=== PATIENT | female | born 1980 | race Caucasian/White ===

== ENCOUNTER 2019-01-24 21:59 | Emergency (ER) | payer SELFPAY ==
[~2019-01-24] VITALS: Ht 167.6 cm; Wt 82.6 kg
[~2019-01-24 21:59] MED LIST: [UNRECOGNIZED DRUG - CODE] PO
[2019-01-24 22:13] VITALS: BP 144/99
--- NOTE | 2019-01-24 22:40 | NUR ---
38 YO BIB SELF AND FAMILY PRESENTS TO ED C/O 06/03 SEVERE LOWER BACK PAIN SINCE 0800 THIS MORNING. PT REPORTS HX OF LOWER BACK SURGERY FOR HERNIATED DISC 10 YEARS AGO. PT STATES THE PAIN IS BEHIND THE INCISION SCAR AND IS CRAMP-LIKE. PT IS UNABLE TO SIT DOWN. -- PT IS TEARFUL, PACING ROOM. COOPERATIVE. ANSWERING QUESTIONS APPROPRIATELY. -- SKIN PINK, DRY, WARM. BREATHING EVEN, UNLABORED. PMH-- BACK SURGERY, ANKLE SURGERY, 2013 RX-- TYLENOL AT 1400, SOULEYMANE'S AT 1900
--- NOTE | 2019-01-24 23:12 | NUR ---
Dr. Cruz evaluating patient at bedside.
[2019-01-24] MEDS ORDERED: DIAZEPAM 5 MG TAB PO ONE (23:25)
[2019-01-24] MEDS ORDERED: KETOROLAC 30 MG/ML VIAL IM ONE (23:25)
--- NOTE | 2019-01-25 | NUR ---
PT RECEIVED 30 MG IM TORADOL AND 5 MG PO VALIUM FOR 06/03 BACK PAIN. PT REPORTS 06/03 PAIN. MEDICATIONS INEFFECTIVE. Addendum: 01/25/19 at [address] [facility] [address] CARDOZA NOTIFIED. NEW ORDERS RECEIVED.
[2019-01-25] MEDS ORDERED: MORPHINE SULFATE 4 MG/ML SYR IM ONE (00:10)
--- NOTE | 2019-01-25 01:00 | NUR ---
PT RECEIVED 4 MG IM MORPHINE AT 0030. PT REPORTS 04/[address] CARDOZA NOTIFIED. AWAITING NEW ORDERS.
[2019-01-25] MEDS ORDERED: fentaNYL 0.05 MG/ML VIAL NS ONE (01:15)
--- NOTE | 2019-01-25 02:00 | NUR ---
PT RECIEVED 1 MG INTRANASAL FENTANYL. WILL CONTINUE TO MONITOR FOR EFFECTIVENESS.
--- NOTE | 2019-01-25 02:25 | NUR ---
PT REPORTS 6/10 BACK PAIN. FENTANYL EFFECTIVE. DR. CARDOZA WILL SEND HOME WITH RX FOR PAIN MEDICATION.
[2019-01-25 02:30] VITALS: BP 132/68
--- NOTE | 2019-01-25 02:30 | NUR ---
Patient discharged with v/s stable. Written and verbal after care instructions given and explained. Patient alert, oriented and verbalized understanding of instructions. Ambulatory with steady gait. All questions addressed prior to discharge. ID band removed. Patient advised to follow up with PMD. Rx of Wilder, Lidoderm, and Naprosyn given. Patient educated on indication of medication including possible reaction and side effects. Opportunity to ask questions provided and answered.
== END 2019-01-25 02:30 | disposition home or self-care (01) ==
LOC: MED 21:59
DX: M54.5 Low back pain (principal); Z98.890 Other specified postprocedural states; Z79.1 Long term (current) use of non-steroidal anti-inflammatories (NSAID)
CPT/HCPCS: 81002; 81025; 96372; 99283; J1885; J2270; J3010

== ENCOUNTER 2019-01-31 09:42 | Emergency (ER) | payer SELFPAY ==
[~2019-01-31] VITALS: Ht 167.6 cm; Wt 87.7 kg
[2019-01-31 09:45] VITALS: BP 133/61
--- NOTE | 2019-01-31 09:50 | NUR ---
BIB DAUGHTER. AAO X4 C/O LOWER BACK PAIN RADIATING TO LT LEG X8 DAYS. PT WAS SEEN IN ER 1 WEEK, WAS GIVEN VALIUM, NORCO, AND NAPROSYN. PT DENIES TRAUMA. CONSTANT SHARP PAIN THAT RADIATES FROM SACRUM DOWN LT LEG AT 10/10. PER PT, SHE HAD PRIOR SURGERY FOR HERNIA DISC 2008. PT STATES SHE WENT TO [facility] ON FRIDAY WITH NO RELIEF. PT HAS STEADY GAIT. ER TO EVALUATE PT.
--- NOTE | 2019-01-31 09:58 | NUR ---
DR AMADOR AT BEDSIDE FOR PT EVAL
--- NOTE | 2019-01-31 09:58 | NUR ---
[facility] in [facility] - 01/31/19 at [address] CRUZ AT [facility] FOR PT EVAL
[2019-01-31] MEDS ORDERED: MORPHINE SULFATE 4 MG/ML SYR IVP ONE (10:00)
[2019-01-31] MEDS ORDERED: NACL 0.9% 1,000 ML IV ONE (10:00)
[2019-01-31] MEDS ORDERED: diphenhydrAMINE 50 MG/ML VIAL IVP ONE (10:45)
[2019-01-31] MEDS ORDERED: KETOROLAC 30 MG/ML VIAL IVP ONE (10:45)
--- NOTE | 2019-01-31 11:08 | NUR ---
PT TAKEN TO CT VIA BED
--- NOTE | 2019-01-31 11:19 | NUR ---
PT TAKEN BACK VIA BED FROM CT
[2019-01-31 11:50] VITALS: BP 145/68
--- NOTE | 2019-01-31 11:50 | NUR ---
Patient discharged with v/s stable. Written and verbal after care instructions given and explained. Patient alert, oriented and verbalized understanding of instructions. Ambulatory with steady gait. All questions addressed prior to discharge. ID band removed. Patient advised to follow up with PMD. Rx of Tramadol Hydrochloride, Robaxin, Motrin given. Patient educated on indication of medication including possible reaction and side effects. Opportunity to ask questions provided and answered.
== END 2019-01-31 11:50 | disposition home or self-care (01) ==
LOC: MED 09:42
DX: M54.42 Lumbago with sciatica, left side (principal); Z88.6 Allergy status to analgesic agent; Z98.890 Other specified postprocedural states
CPT/HCPCS: 72131; 81002; 81025; 96374; 96375; 99284; J1200; J1885; J2270; J7030

== ENCOUNTER 2019-05-12 14:12 | Emergency (ER) | payer MEDICAID ==
[~2019-05-12] VITALS: Ht 167.6 cm; Wt 81.6 kg
[2019-05-12 14:16] VITALS: BP 113/71
[2019-05-12 15:47] VITALS: BP 113/71
== END 2019-05-12 15:47 | disposition home or self-care (01) ==
LOC: MED 14:12
DX: S50.02XA Contusion of left elbow, initial encounter (principal); M67.432 Ganglion, left wrist; Z79.1 Long term (current) use of non-steroidal anti-inflammatories (NSAID); Z98.890 Other specified postprocedural states; W18.39XA Other fall on same level, initial encounter; Y93.89 Activity, other specified; Y92.89 Other specified places as the place of occurrence of the external cause; Y99.8 Other external cause status
CPT/HCPCS: 73080; 73110; 81002; 81025; 99283; Q0092

== ENCOUNTER 2022-06-11 20:44 | Emergency (ER) | payer MEDICAID ==
[~2022-06-11] VITALS: Ht 167.6 cm; Wt 77.1 kg
--- NOTE | 2022-06-11 20:46 | NUR ---
PT BROUGHT TO BED 5 VIA [facility] QUIGLEY
[2022-06-11 20:50] VITALS: BP 149/96
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
--- NOTE | 2022-06-11 21:26 | NUR ---
Dr. Myers examining patient.
[2022-06-11 21:36] LABS: BASOPHILS % (AUTO) 0.6 % (0.0-2.0); EOSINOPHILS % (AUTO) 0.1 % (0.0-4.0); HEMATOCRIT 37.7 % (36-48); LYMPHOCYTES # (AUTO) 2.8 K/uL (2.5-16.5); MEAN CORPUSCULAR HEMOGLOBIN 30 pg (27-31); MEAN CORPUSCULAR HGB CONC 34 g/dL (33-37); MEAN CORPUSCULAR VOLUME 86.9 fL (80-94); MONOCYTES # (AUTO) 0.5 K/uL (0.8-1.0); MONOCYTES % (AUTO) 7.1 % (1.7-9.3); NEUTROPHILS # (AUTO) 3.1 K/uL (1.8-7.7); NEUTROPHILS % (AUTO) 48.2 % (42.2-75.2); PLATELET COUNT (AUTO) 321 K/uL (140-450); RED BLOOD CELL COUNT(AUTO) 4.34 MIL/uL (4.20-5.40); RED CELL DISTRIBUTION WIDTH 14.1 % (11.6-13.7); WHITE BLOOD COUNT (AUTO) 6.4 K/uL (4.8-10.8)
[2022-06-11] MEDS ORDERED: LIDOCAINE MPF 1% 10 MG/ML VIAL INJ ONE (21:40)
--- NOTE | 2022-06-11 21:40 | NUR ---
PT PLACED IN GOWN AND PERSONAL BELONGINGS COLLECTED AND BAGGED WITH PT INFO. ALL ITEMS FROM ROOM HAVE BEEN REMOVED FOR PATIENTS SAFTEY. Q15 SI CHECKS TO BE DONE. PT IS ON A 5150 HOLD
[2022-06-11 22:02] LABS: ANION GAP 15.9 (8-16); CARBON DIOXIDE 23.5 mmol/L (21-32); CHLORIDE 108 mmol/L (98-107); GLUCOSE 107 mg/dL (74-106); POTASSIUM 3.4 mmol/L (3.5-5.1); SODIUM SERUM 144 mmol/L (136-145)
[2022-06-11 22:03] LABS: ALBUMIN 3.8 g/dL (3.4-5.0); ASPARTATE AMINOTRANSFERASE 21 U/L (15-37); TOTAL BILIRUBIN 0.2 mg/dL (0.0-1.0); UREA NITROGEN, BLOOD 3 mg/dL (7-18)
--- NOTE | 2022-06-11 22:03 | NUR ---
URINE AND COVID SWAB OBTAINED
[2022-06-11 22:04] LABS: ACETAMINOPHEN < 0.5 ug/ml (10-30); SALICYLATE < 2.8 mg/dL (2.8-20.0)
--- NOTE | 2022-06-11 22:11 | NUR ---
SISTER NEFTALI COVARRUBIAS WOULD LIKE TO HAVE AN UPDATE ON PATIENT [phone]
[2022-06-11] MEDS ORDERED: LIDOCAINE MPF 1% 5 ML ONE (22:49)
[2022-06-11 22:51] LABS: BARBITURATE, URINE NEGATIVE ng/ml (NEG <=200); BENZODIAZEPINE, URINE POSITIVE ng/mL (NEG <=200); CANNABINOID, URINE NEGATIVE ng/mL (NEG <=50); COCAINE, URINE NEGATIVE ng/mL (NEG <=300); OPIATE, URINE NEGATIVE ng/mL (NEG <=2000); PHENCYCLIDINE SCREEN,URINE NEGATIVE ng/mL (NEG <=25)
--- NOTE | 2022-06-11 23:21 | NUR ---
Patient has a 4 cm laceration to left wrist. Dr. Myers applied sutures using sterile technique. Edges well approximated. Site cleansed with NSS. No bleeding noted. Pt tolerated well.
[2022-06-11] MEDS ORDERED: diphenhydrAMINE 50 MG CAP PO ONE (23:55)
--- NOTE | 2022-06-12 02:05 | NUR ---
PT IS SLEEPING . RESP EVEN AND UNLABORED. Q15 [address] IN [address]ACE. BED AT LOWEST POSITION SIDE RAILS UPX2. PT IS IN VIEW
--- NOTE | 2022-06-12 04:13 | NUR ---
PT IS SLEEPING . NO DISTRESS NOTED . RESP EVEN AND UNLABORED. SIDE RAILS UP X2 Q[address]. PT IN VIEW.
--- NOTE | 2022-06-12 06:11 | NUR ---
FAXES SENT OUT FOR PLACEMENT
--- NOTE | 2022-06-12 07:02 | NUR ---
NOVAL SWAB DONE AND SENT
--- NOTE | 2022-06-12 07:30 | NUR ---
RECEIVED REPORT FROM VERITO SMITH. PATIENT IN BED, NO S/S OF ACUTE DISTRESS NOTED. WILL CONTINUE TO MONITOR
--- NOTE | 2022-06-12 08:17 | NUR ---
PATIENT SITTING UP, TOLERATING BREAKFAST WELL
--- NOTE | 2022-06-12 10:33 | NUR ---
DC PLANNING OUTREACHED TO [facility] [phone] AND SPOKE WITH ART FOR UPDATE . ART REPORTS THAT PACKET IS BEING SENT OUT. ART REPORTS THAT HE WILL NOTATE ONCE SENT. ENDORSED TO ED NURSE
--- NOTE | 2022-06-12 10:43 | NUR ---
Packet faxed to: Fern[facility]/Anali intake [facility]
--- NOTE | 2022-06-12 10:47 | NUR ---
PATIENT ASLEEP IN BED, NO S/S OF ACUTE DISTRESS. WILL CONTINUE TO MONITOR. [address]
--- NOTE | 2022-06-12 12:06 | NUR ---
PATIENT TOLERATED LUNCH WELL, NO S/S OF ACUTE DISTRESS NOTED. [address]
--- NOTE | 2022-06-12 13:59 | NUR ---
REPORT GIVEN TO VERITO MULLER FROM [facility] FOR CONTINUITY OF CARE
[2022-06-12 14:29] VITALS: BP 126/76
[2022-06-13 10:00] LABS: CREATININE 0.5 mg/dL (0.6-1.3); GFR ARICAN-AMERICAN 121 mL/min (>90)
== END 2022-06-12 14:29 ==
LOC: MED 20:44
DX: S61.512A Laceration without foreign body of left wrist, initial encounter (principal); Z20.822 Contact with and (suspected) exposure to COVID-19; R45.851 Suicidal ideations; Z79.899 Other long term (current) drug therapy; Y33.XXXA Other specified events, undetermined intent, initial encounter; Y93.89 Activity, other specified; Y92.89 Other specified places as the place of occurrence of the external cause; Y99.8 Other external cause status
CPT/HCPCS: 12002; 36415; 80053; 80305; 84702; 85025; 87426; 87635; 90471; 90715; 99285; C9803; G0480; G0482; J2001; Q0163